=== PATIENT | female | born 1980 | race Caucasian/White ===

== ENCOUNTER 2016-05-27 03:45 | Emergency (ER) | payer MEDICAID, MEDICARE, OTHER ==
[~2016-05-27] VITALS: Ht 162.6 cm; Wt 59.0 kg
--- NOTE | 2016-05-27 04:36 | ED Fall/Injury ---
General Chief Complaint: Upper Extremity Stated Complaint: FALL,RT WRIST SNAPPED Nursing Triage Note: PT TO ED 6 W/ C/O RT WRIST PAIN ONSET AFTER FALLING YESTERDAY WHILE TRYING TO ENTER S.O[facility]S HOME. REPORTS 2 PREVIOUS FX TO SAME WRIST W/ TENDON REPAIR. NO OTHER C/O Source: patient Exam Limitations: no limitations History of Present Illness Time seen by provider: 03:51 Initial Comments This 36-year-old woman presents to the emergency room with right wrist pain after falling and landing on the right wrist. She has had 2 prior fractures requiring surgical intervention in the same location. The incident happened yesterday when she tripped over the threshold. Allergies and Home Medications Allergies Coded Allergies: No Known Drug Allergies (Unverified , 05/27/16) Constitutional: no symptoms reported Eyes: No Symptoms Reported Ears, Nose, Mouth, Throat: no symptoms reported Respiratory: no symptoms reported Cardiovascular: no symptoms reported Gastrointestinal: no symptoms reported Genitourinary: no symptoms reported Musculoskeletal: see HPI Skin: no symptoms reported Psychiatric/Neurological: No Symptoms Reported Past Phdfbmy-Oejjua-Rwptze Hx Patient Social History Alcohol Use: Denies Use Recreational Drug Use: No Smoking Status: Current Everyday Smoker Type Used: Cigarettes Recent Foreign Travel: No Contact w/Someone Who Travel: No Recent Infectious Disease Expo: No Recent Hopitalizations: No Surgeries HX Surgeries: Yes (TENDON REPAIR RT HAND) Surgeries: Section, Orthopedic (right wrist reconstruction) Respiratory Hx Respiratory Disorders: No Cardiovascular Hx Cardiac Disorders: No Neurological Hx Neurological Disorders: No Reproductive System Hx Reproductive Disorders: No Genitourinary Hx Genitourinary Disorders: No Gastrointestinal Hx Gastrointestinal Disorders: No Musculoskeletal Hx Musculoskeletal Disorders: No Endocrine Hx Endocrine Disorders: No HEENT HX ENT Disorders: No Cancer Hx Cancer: No Psychosocial Hx Psychiatric Problems: No Integumentary HX Skin/Integumentary Disorder: No Blood Transfusions Hx Blood Disorders: No Physical Exam Vital Signs Capillary Refill : Less Than 3 Seconds General Appearance: WD/WN mild distress HEENT: PERRL/EOMI normal ENT inspection Respiratory: normal breath sounds no respiratory distress Extremities: normal inspection other (there is tenderness to the wrist and proximal hand. Pain with range of motion. 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 no motor/sensory deficits alert oriented x 3 other (patient seems rather anxious.) Henley Coma Score Best Eye Response: (4) Open Spontaneously Best Verbal Response: (5) Oriented Best Motor Response: (6) Obeys Commands Bhavin Total: 15 Progress/Results/Core Measures Results/Orders My Orders Orders-TRINA HAWK MD Wrist, Right, 3 Views Or More (05/27/16 03:56) Hand, Right, 3 Views (05/27/16 03:56) Ketorolac Injection (Toradol Injection) (05/27/16 04:45) Im/Sub-Q Injection Non-Ab Ed (05/27/16 ) Vital Signs/I&O Blood Pressure Mean: 105 Progress Note : Progress Note X-rays were negative for fracture or dislocation. Toradol was offered for management of pain. Patient accepted. Diagnostic Imaging Diagonstic Imaging: Xray Plain Films/CT/US/NM/MRI: hand, other (wrist) Comments X-rays of the right hand and wrist viewed by me. Report is not yet available. No acute fractures or dislocations appreciated. Positioning was somewhat limited due to patient cooperation. Departure Impression Impression: Primary Impression: Right wrist sprain Qualified Code: S63.501A - Unspecified sprain of right wrist, initial encounter Disposition: HOME, SELF-CARE Condition: Improved Departure-Patient Inst. Decision time for Depature: 04:30 Referrals: NO,LOCAL PHYSICIAN (PCP) Primary Care Physician Patient Instructions: Wrist Sprain (DC) Add. Discharge Instructions: Rest, elevation, icing in 20 minute intervals, and use of a splint or brace should be helpful in reducing pain. You may take ibuprofen up to 600 mg every 6 hours as needed for pain. Add Tylenol up to 650 mg every 4 hours as needed for additional pain relief. Follow-up with your primary care provider on Monday if not improving. All discharge instructions reviewed with patient and/or family. Voiced understanding. TRINA HAWK MD May 27, 2016 04:36 TRINA HAWK MD May 27, 2016 04:36
[2016-05-27] MEDS ORDERED: KETOROLAC 60 MG/2 ML VIAL IM ONE (04:45)
[2016-05-27 04:50] VITALS: BP 0/0
--- NOTE | 2016-05-27 05:54 | Diagnostic Imaging Report ---
Indication: Right hand pain 3 views of the right hand show no fracture, dislocation or other acute abnormalities. Impression: Negative right hand Dictated by: Dictated on workstation # [id number]
--- NOTE | 2016-05-27 06:49 | Diagnostic Imaging Report ---
INDICATION: Right wrist pain. 3 views of the right wrist show no fracture, dislocation, or other acute abnormalities. IMPRESSION: Negative right wrist. Dictated by: Dictated on workstation # [id number]
== END 2016-05-27 04:50 | disposition home or self-care (01) ==
LOC: ER 03:51
DX: S63.501A Unspecified sprain of right wrist, initial encounter (principal); F17.210 Nicotine dependence, cigarettes, uncomplicated; Y92.009 Unspecified place in unspecified non-institutional (private) residence as the place of occurrence of the external cause; Y99.8 Other external cause status
CPT/HCPCS: 73110; 73130; 96372; 99283